=== PATIENT | female | born 2000 | race Caucasian/White ===

== ENCOUNTER 2019-11-10 00:15 | Emergency (ER) | payer OTHER ==
[2019-11-10] MEDS ORDERED: NORMAL SALINE 1000 ML 1,000 ML IV ONE (00:31)
--- NOTE | 2019-11-10 00:33 | ER Document Report ---
ED Medical Screen (RME) - General Stated Complaint: SUBSTANCE ABUSE Time Seen by Provider: 11/10/19 00:31 - HPI Notes: 11/10/19 00:31 Patient is a 19-year-old female no significant past medical history who is a regular pot smoker who presents complaining of palpitations and feeling shaky and like she is going to pass out after eating brownies at a [employer]. Patient states that she thought they were laced with marijuana, but she is never felt like this before and her friend will not text her back. She has otherwise been able to eat and drink without difficulty. She is urinating normally. Denies drug allergies. No fever, chest pain, shortness of breath, vomiting, diarrhea. I have treated and performed a rapid initial assessment of this patient. A comprehensive ED assessment and evaluation of the patient, analysis of test results and completion of medical decision making process will be conducted by additional ED providers. PHYSICAL EXAMINATION: GENERAL: Well-appearing, well-nourished and in no acute distress. A&Ox4. Answers questions appropriately. Eyes: PERRLA, EOMI bilaterally. Lungs: Grossly CTAB Heart: Tachycardic, RRR Neuro: Cranial nerves grossly intact. Psych: Anxious appearing. Physical Exam - Vital signs Vitals: Temp Pulse Resp BP Pulse Ox 98.5 F 133 H 20 146/93 H 96 11/10/19 00:24 11/10/19 00:24 11/10/19 00:24 11/10/19 00:24 11/10/19 00:24 Course - Vital Signs Vital signs: Temp Pulse Resp BP Pulse Ox 98.5 F 133 H 20 146/93 H 96 11/10/19 00:24 11/10/19 00:24 11/10/19 00:24 11/10/19 00:24 11/10/19 00:24
[2019-11-10 01:34] LABS: APPEARANCE,URINE SLIGHTLY-CLOUDY; BILIRUBIN,URINE NEGATIVE (NEGATIVE); COLOR,URINE YELLOW; GLUCOSE, URINE NEGATIVE (NEGATIVE); KETONES,URINE TRACE mg/dL (NEGATIVE); LEUKOCYTE ESTERASE,URINE NEGATIVE (NEGATIVE); NITRITE,URINE NEGATIVE (NEGATIVE); PROTEIN,URINE 30 mg/dL (NEGATIVE); URINE SPECIFIC GRAVITY 1.026; UROBILINOGEN,URINE NEGATIVE mg/dL (<2.0)
[2019-11-10 01:49] LABS: URINE AMPHETAMINES SCREEN NEGATIVE; URINE BARBITURATES SCREEN NEGATIVE; URINE BENZODIAZEPINES SCREEN NEGATIVE; URINE COCAINE SCREEN NEGATIVE; URINE METHADONE SCREEN NEGATIVE; URINE PHENCYCLIDINE SCREEN NEGATIVE
[2019-11-10 01:51] LABS: URINE MARIJUANA (THC) SCREEN UNCONFIRMED POSITIVE
[2019-11-10] MEDS ORDERED: LORAZEPAM INJ 2 MG/1 ML VIAL IV ONE (01:53)
--- NOTE | 2019-11-10 01:54 | ER Document Report ---
ED General - General Chief Complaint: Possible Overdose Stated Complaint: SUBSTANCE ABUSE Time Seen by Provider: 11/10/19 00:31 Primary Care Provider: ZAN FRIEDMAN MD [Primary Care Provider] - Follow up as needed Notes: Patient is a 19-year-old female that comes emergency department for chief complaint of feeling like her heart is racing, feeling shaky, feeling lightheaded, and feel like she is going to pass out. She states she felt fine until she ate brownies at a [employer] party she was out earlier. She states she is worried they were laced with something. She states she has intermittently had marijuana in the past and this feels different. She denies recreational drugs otherwise. She denies alcohol, she denies any diagnosed medical history or daily medications. Patient denies chest pain, shortness of breath, fever, vomiting, abdominal pain, diarrhea. LMP within the past month. Significant other at bedside. TRAVEL OUTSIDE OF THE [place] IN LAST 30 DAYS: No - Related Data Allergies/Adverse Reactions: No Known Allergies Allergy (Unverified 11/10/19 01:13) Past Medical History - General Information source: Patient, Relative - Social History Smoking Status: Never Smoker Frequency of alcohol use: None Drug Abuse: Marijuana Lives with: Family Family History: Reviewed & Not Pertinent Patient has suicidal ideation: No Patient has homicidal ideation: No - Immunizations Immunizations up to date: Yes Hx Diphtheria, Pertussis, Tetanus Vaccination: Yes Review of Systems - Review of Systems Constitutional: See HPI EENT: No symptoms reported Cardiovascular: See HPI Respiratory: No symptoms reported Gastrointestinal: No symptoms reported Genitourinary: No symptoms reported Female Genitourinary: No symptoms reported Musculoskeletal: No symptoms reported Skin: No symptoms reported Hematologic/Lymphatic: No symptoms reported Neurological/Psychological: See HPI Physical Exam - Vital signs Vitals: Temp Pulse Resp BP Pulse Ox 98.1 F 134 H 20 143/99 H 100 11/10/19 00:21 11/10/19 00:21 11/10/19 00:21 11/10/19 00:21 11/10/19 00:21 - Notes Notes: GENERAL: Restless, anxious HEAD: Normocephalic, atraumatic. EYES: Pupils equal, round, very dilated, and reactive to light. Extraocular movements intact. ENT: Oral mucosa dry, tongue midline. Oropharynx unremarkable. Airway patent. LUNGS: Clear to auscultation bilaterally, no wheezes, rales, or rhonchi. No respiratory distress. HEART: Regular rate and rhythm. No murmur ABDOMEN: Soft, non-tender. Non-distended. Bowel sounds present in all 4 quadrants. GENITOURINARY: Deferred EXTREMITIES: Moves all 4 extremities spontaneously. No edema, normal radial and dorsalis pedis pulses bilaterally. No cyanosis. BACK: no cervical, thoracic, lumbar midline tenderness. No saddle anesthesia, normal distal neurovascular exam. Moves all extremities in full range of motion. NEUROLOGICAL: Alert and oriented x3. Normal speech. Cranial nerves II through XII grossly intact. PSYCH: Somewhat anxious and restless SKIN: Warm, dry, normal turgor. No rashes or lesions noted. Course - Re-evaluation Re-evalutation: Patient initially with dilated pupils, tachycardic in the 130s, appears anxious and restless. Suspect THC overdose. Patient does not have chest pain, she is not lightheaded, she states she just feels anxious. She was lightheaded earlier however. She did not pass out. CBC shows mild leukocytosis, chemistry nonspecific, urinalysis shows elevated specific gravity and ketones. Alcohol negative. Urine drug screen shows marijuana only. Reevaluated patient, heart rate is less than 110 on my exam, she states she feels much improved and is requesting to leave. She is not suicidal or homicidal. She has received IV fluids and a small amount of Ativan. She has not had any chest pain or shortness of breath. She ambulates without difficulty. She is states she will go home with her significant other. She states she understands the dangerousness of recreational drugs. Discussed return precautions. Patient states appreciation and agreement. Stable time of discharge. - Vital Signs Vital signs: Temp Pulse Resp BP Pulse Ox 98.5 F 133 H 22 H 125/81 100 11/10/19 00:24 11/10/19 00:24 11/10/19 03:34 11/10/19 03:34 11/10/19 03:34 - Laboratory Result Diagrams: 11/10/19 02:32 11/10/19 01:35 Laboratory results interpreted by me: 11/10/19 11/10/19 11/10/19 01:00 01:35 02:32 WBC 12.4 H Hgb 11.8 L Hct 35.3 L MCH 26.9 L RDW 16.7 H Lymph % (Auto) 7.1 L Absolute Neuts (auto) 10.8 H Seg Neutrophils % 87.7 H Sodium 136.1 L Creatinine 0.49 L Glucose 130 H Urine Protein 30 H Urine Ketones TRACE H Urine Ascorbic Acid 20 H Salicylates < 1.0 L Acetaminophen < 10 L - EKG Interpretation by Me Additional EKG results interpreted by me: EKG shows sinus tachycardia at a rate of 110, QTC of 428, no T wave inversions or ST segment changes in consecutive leads, [place] interval of 152 Discharge - Discharge Clinical Impression: Dizziness, Dehydration Drug ingestion, accidental Qualifiers: Encounter type: initial encounter Qualified Code(s): T50.901A - Poisoning by unspecified drugs, medicaments and biological substances, accidental (uninte ntional), initial encounter Condition: Stable Disposition: HOME, SELF-CARE Additional Instructions: You have been treated for dehydration and probably side effects from high-dose THC. Avoid recreational drugs. Continue to hydrate and rest today. Follow-up with primary care for additional management. Return if you worsen including passing out, vomiting, difficulty breathing, chest pain, fever, or any other concerning symptoms Forms: Treatment of Relative/Child Referrals: ZAN FRIEDMAN MD [Primary Care Provider] - Follow up as needed
[2019-11-10 02:23] LABS: ALBUMIN 4.6 g/dL (3.5-5.0); ALKALINE PHOSPHATASE 83 U/L (38-126); ANION GAP 12 (5-19); ASPARTATE AMINO TRANSFERASE 20 U/L (14-36); BILIRUBIN,TOTAL 0.3 mg/dL (0.2-1.3); BLOOD UREA NITROGEN 17 mg/dL (7-20); CALCIUM 9.7 mg/dL (8.4-10.2); CARBON DIOXIDE 22 mmol/L (22-30); CHLORIDE 102 mmol/L (98-107); GLUCOSE 130 mg/dL (75-110); POTASSIUM 3.9 mmol/L (3.6-5.0); TOTAL PROTEIN 7.8 g/dL (6.3-8.2)
[2019-11-10 02:26] LABS: ACETAMINOPHEN < 10 ug/mL (10-30); ALCOHOL < 10 mg/dL (NONE DETECTED); SALICYLATE < 1.0 mg/dL (2.0-20.0)
[2019-11-10 02:46] LABS: ABSOLUTE LYMPHOCYTES (AUTO) 0.9 10^3/uL (0.5-4.7); ABSOLUTE MONOCYTES (AUTO) 0.6 10^3/uL (0.1-1.4); ABSOLUTE NEUT (AUTO) 10.8 10^3/uL (1.7-8.2); BASOPHILS % (AUTO) 0.3 % (0-2); EOSINOPHILS % (AUTO) 0.1 % (0-6); HEMATOCRIT 35.3 % (36.0-47.0); HEMOGLOBIN 11.8 g/dL (12.0-15.5); LYMPHOCYTES % (AUTO) 7.1 % (13-45); MEAN CORPUSCULAR HEMOGLOBIN 26.9 pg (27.0-33.4); MEAN CORPUSCULAR HGB CONC 33.4 g/dL (32.0-36.0); MEAN CORPUSCULAR VOLUME 81 fl (80-97); MONOCYTES % (AUTO) 4.8 % (3-13); PLATELET COUNT 417 10^3/uL (150-450); RED BLOOD COUNT 4.38 10^6/uL (3.72-5.28); RED CELL DISTRIBUTION WIDTH 16.7 % (11.5-14.0); SEGMENTED NEUTROPHILS % (AUTO) 87.7 % (42-78); TOTAL CELLS COUNTED % (AUTO) 100 %; WHITE BLOOD COUNT 12.4 10^3/uL (4.0-10.5)
[2019-11-10] MEDS ORDERED: NORMAL SALINE 500 ML IV ONE (02:52)
[2019-11-10 03:46] VITALS: BP 125/81
--- NOTE | 2019-11-10 07:44 | EKG REPORT ---
SEVERITY:- OTHERWISE NORMAL ECG - SINUS TACHYCARDIA : Confirmed by: Ok Carpio MD 10-Nov-2019 07:44:08
== END 2019-11-10 04:00 | disposition home or self-care (01) ==
LOC: ER 00:15
DX: R42 Dizziness and giddiness (principal); E86.0 Dehydration; T50.901A Poisoning by unspecified drugs, medicaments and biological substances, accidental (unintentional), initial encounter; X58.XXXA Exposure to other specified factors, initial encounter; R00.0 Tachycardia, unspecified
CPT/HCPCS: 93005; 99284; 96361; 96374; 36415; 80307 ×4; 84703; 85025; 80053; 81001; 93010; J2060; J7030; J7040